=== PATIENT | female | born 1970 | race Asian ===

== ENCOUNTER → 2017-12-23 | Outpatient (CLI) | payer OTHER | END | disposition home or self-care (01) | LOC: CFH 08:37 | PROVIDERS: ATTEND Obstetrics & Gynecology Gynecology | DX: Z12.31 Encounter for screening mammogram for malignant neoplasm of breast (principal); N85.8 Other specified noninflammatory disorders of uterus | CPT/HCPCS: 76830; 77063; 77067 ==

== ENCOUNTER → 2019-01-26 | Outpatient (CLI) | payer OTHER | END | disposition home or self-care (01) | LOC: CFH 09:00 | PROVIDERS: ATTEND Obstetrics & Gynecology | DX: Z12.31 Encounter for screening mammogram for malignant neoplasm of breast (principal) | CPT/HCPCS: 77063; 77067 ==

== ENCOUNTER 2021-02-08 20:40 | Emergency (ER) | payer OTHER ==
[~2021-02-08] VITALS: Ht 167.6 cm; Wt 58.0 kg
--- NOTE | 2021-02-08 20:50 | NUR ---
INITIAL PT CONTACT. PT PRESENTS TO ED C/O LEFT SIDED NUMBNESS TO THE ARM AND HAND AND ASSOCIATED LEFT SIDED BACL/SCAPULAR PAIN, WORSE WITH PALPATION AND MOVEMENT. PAIN PRESENT APPROX 10 DAYS. PT DENIES ANY RECENT INJURY. PT SITTING UPRIGHT ON GURNEY, NADN, VSS. PT PLACED ON CONTINUOUS MONITORING. PT DENIES ANY NEEDS AT THIS TIME. CALL LIGHT AND PERSONAL BELONGINGS WITHIN REACH.
--- NOTE | 2021-02-08 21:05 | NUR ---
ERP AT BEDSIDE
[2021-02-08] MEDS ORDERED: KETOROLAC 60 MG/2 ML ONE (21:09)
--- NOTE | 2021-02-08 21:25 | NUR ---
PT TO IMAGING
[2021-02-08] MEDS ORDERED: KETOROLAC 30 MG/1 ML IM ONE (21:30)
--- NOTE | 2021-02-08 21:57 | NUR ---
PT SITTING UPRIGHT ON ELIZABETH STOVALL, VSS. PT REPORTS IMPROVED PAIN FOLLOWING NIGHT SHIFT MANAGER. NO ADDITIONAL NEEDS AT THIS TIME. CALL LIGHT AND PERSONAL BELONGINGS WITHIN REACH
[2021-02-08 23:23] VITALS: BP 160/70
--- NOTE | 2021-02-08 23:23 | NUR ---
Patient given discharge instructions and they have confirmed that they understand the instructions. Patient ambulatory with steady gait.
== END 2021-02-08 23:34 | disposition home or self-care (01) ==
LOC: ED 21:57
DX: M54.12 Radiculopathy, cervical region (principal); R07.9 Chest pain, unspecified; R94.31 Abnormal electrocardiogram [ECG] [EKG]
CPT/HCPCS: 71046; 72050; 93005; 96372; 99284; J1885; J7512